=== PATIENT | female | born 2000 | race Caucasian/White ===

== ENCOUNTER 2020-04-22 12:11 | Emergency (ER) | payer OTHER ==
[2020-04-22 12:16] VITALS: BP 128/78; PULSE 74; TEMP 97.8; BMI 26.2
--- NOTE | 2020-04-22 12:18 | PDOC ---
Rapid Medical Evaluation Time Seen by Provider: 04/22/20 12:13 Medical Evaluation: Allergies Allergy/AdvReac Type Severity Reaction Status Date / Time No Known Allergies Allergy Verified 04/22/20 12:13 04/22/20 12:14 I have performed a brief in-person evaluation of this patient. The patient presents with a chief complaint of:heavy vaginal bleeding w/ abd cramping x > 1 week. LMP end of March. Neg preg test in UC yesterday. Has ADVERTISING INTERN appt set for May 03. Returns today for ongoing vag bleed w/ weakness now. H/o PCOS, not on control. No ADVERTISING INTERN eval in past Pertinent physical exam findings:stable and well jesus I have ordered the following:cbc/upreg The patient will proceed to the ED for further evaluation. Discharge Disposition - Diagnosis DUB (dysfunctional uterine bleeding) - Referrals - Patient Instructions - Post Discharge Activity
--- NOTE | 2020-04-22 12:44 | PDOC ---
History of Present Illness - General Chief Complaint: Vaginal Bleeding Stated Complaint: VAGINAL BLEEDING/BACK PAIN Time Seen by Provider: 04/22/20 12:13 History Source: Patient Exam Limitations: No Limitations - History of Present Illness Initial Comments: 04/22/20 12:39 21 female past medical history of PCOS not on any control presenting to the ED with 2 weeks of worsening vaginal bleeding without discharge. Patient states that over the last 14 days she had progressively worsening vaginal bleeding and is now passing large clots. Patient states that she was seen in urgent care yesterday and referred to BUSINESS ANALYSIS ANALYST her test at the urgent care was negative. Patient is using about 4 pads a day. Pt is also complaining of crampy abdominal pain described similar to her periods. Pt is sexually active with only 1 partner x 8 months, no discharge prior to bleeding. Pt otherwise denies: fevers, chills, syncope, lightheadedness, dizziness, headaches, neck pain, chest pain, shortness of breath, palpitations, back pain, abdominal pain, nausea, vomiting, diarrhea, constipation. Past History - Medical History Allergies/Adverse Reactions: Allergies Allergy/AdvReac Type Severity Reaction Status Date / Time No Known Allergies Allergy Verified 04/22/20 12:13 Home Medications: Ambulatory Orders NK [No Known Home Medication] 04/22/20 COPD: No Other medical history: pcos - Immunization History Immunization Up to Date: Yes - Psycho-Social/Smoking History Smoking Status: No Smoking History: Unknown if ever smoked Number of Cigarettes Smoked Daily: 0 - Substance Abuse Hx (Audit-C & DAST Scrn) How often the patient has a drink containing alcohol: Monthly or less Score: In Men: 4 or > Positive; In Women: 3 or > Positive: 1 Screen Result (Pos requires Nsg. Audit-10AR): Negative In the last yr the pt used illegal drug/Rx for NonMed reason: No Score: Yes response is considered Positive: 0 Screen Result (Positive result requires Nsg. DAST-10): Negative Review of Systems - Review of Systems Constitutional: No: Chills, Fever HEENTM: No: Eye Pain, Throat Pain Respiratory: No: Shortness of Breath Cardiac (ROS): No: Chest Pain ABD/GI: No: Abdominal Distended, Nausea, Rectal Bleeding, Vomiting : Yes: Symptoms Reported (baginal bleeding ). No: Burning, Dysuria, Discharge, Frequency, Flank Pain, Hematuria, Urgency Integumentary: No: Bruising, Change in Color *Physical Exam - Vital Signs Last Vital Signs Temp Pulse Resp BP Pulse Ox 97.8 F 74 16 128/78 98 04/22/20 12:12 04/22/20 12:12 04/22/20 12:12 04/22/20 12:12 04/22/20 12:12 - Physical Exam 04/22/20 12:42 Gen: AAOx 3, no acute distress, comfortable, no signs of respiratory distress HENT: atraumatic, normocephalic with no laceration or contusion. Nasal mucosa without erythema. Oropharynx without erythema or exudates. Mucous membranes moist. EYES: PERRL, EOM intact, conjunctiva pink NECK: supple; trachea midline; no JVD, no lymphadenopathy, or thyromegaly CV: RRR no murmurs, gallops, or rubs. CHEST: CTA b/l no wheezing, rales or rhonchi ABD: +BS/ND. no TTP; soft, no rebound, no guarding, mildly ttp over suprapubic area PELVIC: No external lesions, vaginal vault: - white discharge, blood in vault, neg midline tenderness elicited with manual exam, no CMT or adnexal tenderness; os closed EXTREMITY: no cyanosis or erythema. 2+ dorsalis pedis, posterior tibial, and radial pulse. No pedal edema; no calf swelling or tenderness SKIN: no rash, warm and dry, no diaphoresis HEME: no purpura or ecchymosis NEURO: normal speech, CN II-XII intact, sensation intact, normal gait, no cerebellar deficits MS: 5/5 strength in all extremities, FROM intact in all extremities. ED Treatment Course - LABORATORY CBC & Chemistry Diagram: 04/22/20 13:00 04/22/20 13:00 Medical Decision Making - Medical Decision Making 04/22/20 12:43 20-year-old female past medical history of PCOS coming in to the ED complaining of vaginal bleeding x2 weeks using approximately 4 pads a day Vital signs stable pelvic exam only with blood, no discharge on tenderness Will obtain CBC CMP type and screen UA U.preg Will reassess based on Upreg negative Ua shows blood (likely from vaginal bleeding) no sign of infection Labs show WNC 12.6 no shift, no anemia Rest of labs noncontributory Will obain TVUS to further evaluate TVUS shows some pelvic free fluid which is a normal variant. Will swab for GC and discharge with close follow up with PCP and [facility] PROFESSOR. Pt appears well and is safe and stable for discharge. Supportive care instructions explained and given to pt. Reasons to return emergently to ER explained and given. Importance of follow up with PMD and other specialists as indicated stressed to pt. Pt verbalized understanding of instructions. Pt to follow up with PMD in 2 days. 04/22/20 15:17 Discharge - Discharge Information Problems reviewed: Yes Clinical Impression/Diagnosis: DUB (dysfunctional uterine bleeding) Condition: Stable Disposition: HOME - Follow up/Referral Referrals: Ry Garcia MD [Primary Care Provider] - Brian Munoz MD [Staff Physician] - Tara Paniagua MD [Staff Physician] - - Patient Discharge Instructions Patient Printed Discharge Instructions: DI for Vaginal Bleeding Additional Instructions: YOU MUST FOLLOW UP WITH BUSINESS ANALYSIS ANALYST WITHOUT FAIL - Post Discharge Activity
[2020-04-22 14:08] LABS: BASO % 0.3 % (0-2.0); EOS % 0.8 % (0-4.5); HEMATOCRIT 38.9 % (32.4-45.2); HEMOGLOBIN 12.9 GM/dL (10.7-15.3); LYMPH % 13.2 % (8-40); MCH 30.4 pg (25.7-33.7); MCHC 33.2 g/dl (32.0-36.0); MEAN CELL VOLUME 91.8 fl (80-96); MEAN PLT VOLUME 8.8 fl (7.5-11.1); NEUT % 75.7 % (42.8-82.8); PLATELET COUNT 332 K/MM3 (134-434); RBC 4.24 M/mm3 (3.60-5.2); RDW 13.5 % (11.6-15.6); WHITE BLOOD COUNT 12.6 K/mm3 (4.0-10.0)
[2020-04-22 14:12] LABS: EPI CELLS 25 /uL (0-25.1); HYALINE CASTS 2 /uL (0-3.1); URINE APPEARANCE CLEAR; URINE BACTERIA 240 /uL (0-1359); URINE BILIRUBIN NEGATIVE (NEGATIVE); URINE COLOR YELLOW; URINE GLUCOSE (UA) NEGATIVE (NEGATIVE); URINE KETONE 1+ (NEGATIVE); URINE LEUK ESTERASE NEGATIVE (NEGATIVE); URINE NITRITE NEGATIVE (NEGATIVE); URINE PROTEIN TRACE (NEGATIVE); URINE RBC 690 /uL (0-23.9); URINE WBC 5 /uL (0-25.8)
[2020-04-22 14:42] LABS: ALBUMIN 3.9 g/dl (3.4-5.0); BILIRUBIN,TOTAL 0.7 mg/dL (0.2-1); BLOOD UREA NITROGEN 8.5 mg/dL (7-18); CALCIUM 9.3 mg/dL (8.5-10.1); CREATININE 0.7 mg/dL (0.55-1.3); TOT PROT 7.4 g/dl (6.4-8.2)
== END 2020-04-22 15:24 | disposition home or self-care (01) ==
LOC: JER 12:11
DX: N93.9 Abnormal uterine and vaginal bleeding, unspecified (principal)
CPT/HCPCS: 36415; 76830-TC; 80053; 81003; 84703; 85025; 87491; 87591; 99284-25